=== PATIENT | female | born 2000 | race Caucasian/White ===

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

== ENCOUNTER 2018-08-30 00:57 | Inpatient (IN) ==
--- NOTE | 2018-08-30 02:04 | ED ---
History of Present Illness Primary Care Physician: UNKNOWN Chief Complaint: Contractions History of Present Illness: 17 year-old , IUP at 41.0 care complicated by ADHD, bipolar disorder, asthma, chronic hypertension The patient presents complaining of the onset of painful contractions that started yesterday at 1 pm. She reports they have increased in intensity and frequency since that time and she is now feeling them about every 10 to 15 minutes. She thought she may be having some leaking but denies any large gush of fluid. She denies any vaginal bleeding. She reports normal movement. She has no other obstetrical concerns tonight. reading assistant: , SAB x1, Denies abnormal PAPs or STDs PMH: ADHD, bipolar disorder, asthma, chronic hypertension FH: CAD, CO, CVA, DM PSH: L foot/toe surgery SH: denies Meds/Allergies: denies - Inpatient Certification I certify that the inpatient services were ordered in accordance with Medicare regulations governing the order. This includes certification that hospital inpatient services are reasonable and necessary and in the case of services not specified as inpatient-only under 42 CFR 419.22(n), that they are appropriately provided as inpatient services in accordance to with the 2-midnight benchmark under 43 CFR 412.3(e) Review of Systems All other systems reviewed negative except as stated in HPI [facility] - History History Provided By: Patient - Medical History Medical History: Medical History (Last Reviewed 05/22/18 @ 00:32 by Svetlana Villavicencio) History of ADHD - Surgical History Surgical History: Surgical History (Last Updated 05/21/18 @ 23:45 by Antonia Matamoros RN) No history of previous surgery - Tobacco History Smoking Status: Former smoker Tobacco Type: Cigarettes - Alcohol History How Often Do You Have a Drink Containing Alcohol: Never - Substance Use History Substance History: No History of Abuse - Travel History Recent Travel in the [place] Within the Last 8 Weeks: No Recent Travel Out of the Country Within the Last 8 Weeks: No Medications and Allergies Allergies Allergy/AdvReac Type Severity Reaction Status Date / Time tide Allergy Severe Hives Uncoded 08/07/18 10:58 Home Medications Medication Instructions Recorded Confirmed Type No Known Home Medications 08/07/18 08/07/18 History Exam Vital signs: Vital Signs 08/30/18 01:24 Pulse Rate 77 Respiratory Rate 18 Blood Pressure 134/85 Narrative: GENERAL: Well-nourished, well-developed patient. SKIN: Warm and dry. No rashes, lesions, masses. HEAD: Normocephalic and atraumatic. EYES: No scleral icterus. No injection or drainage. ENT: No nasal drainage noted. Mucous membranes pink. Airway patent. NECK: Supple, trachea midline. No JVD. CARDIOVASCULAR: Regular rate and rhythm without murmurs, gallops, or rubs. RESPIRATORY: Breath sounds equal bilaterally. No accessory muscle use. BREASTS: Deferred ABDOMEN/GI: Abdomen soft, non-tender, bowel sounds present, no rebound, no guarding Gravid GENITOURINARY: Normal EGBUS, no cervical or vaginal masses noted, physiologic discharge, Amnisure negative, grossly normal rugae, SVE 4/80/-2, cephalic FHT's: heart tones are in the 130s with moderate middle or intermediate school principal variability, good accels, and no decels noted. This is a category 1 heart rate tracing and a reactive NST. EXTREMITIES: No cyanosis or edema. BACK: Nontender without obvious deformity. No CVA tenderness. NEUROLOGICAL: Awake and alert x3. Grossly normal memory/affect. Cranial nerves II through XII grossly intact. Grossly normal range of motion. Motor and sensory grossly within normal limits. Five out of 5 muscle strength in all muscle groups. Normal speech. Assessment and Plan - Plan Assessment/Plan: 1. IUP at 41.0 2. Early active vs late latent labor: patient has made cervical change of 1 cm since yesterday and reports contractions. Will admit and augment if indicated. Discussed briefly risks of , risks/indications of delivery. All of the patient's questions were answered. 3. GBS negative 4. wellbeing: reassuring testing with reactive NST and category 1 heart rate tracing, continue monitoring 5. Chronic hypertension: BP stable today 6. ADHD 7. Bipolar disorder 8. Asthma Discharge Plan - Discharge Disposition Patient Disposition: 30 Still Patient - Discharge Condition Condition: Good - Physicians Team ED Provider: Cristina Ronquillo Primary Care Provider: UNKNOWN,
[2018-08-30] MEDS ORDERED: Oxytocin 30 Units/500ml Premix 30 UNITS/500 ML BAG IV.SIG ONE (02:16)
[2018-08-30] MEDS ORDERED: fentaNYL Citrate Inj 100 MCG/2 ML Ampul IV.PUSH PRN ×2 (02:16)
[2018-08-30] MEDS ORDERED: Sodium Chlor 0.9% Inj 500 ML IV.SIG PRN (02:16)
[2018-08-30] MEDS ORDERED: Naloxone Inj 0.4 MG/ML Vial IV.PUSH PRN ×2 (02:16→19:56)
[2018-08-30] MEDS ORDERED: Sod Chloride 0.9% Inj 1,000 ML IV.CONT PRN (02:16)
[2018-08-30] MEDS ORDERED: Oxytocin 30 Units/500ml Premix 30 UNITS/500 ML BAG IV.SIG PRN ×2 (02:17→10:18)
[2018-08-30] MEDS ORDERED: Citric Acid/Sodium Citrate Liq 30 ML UDC PO SCH (02:30)
[2018-08-30 02:45] LABS: Baso % (Auto) 0.1 % (0.0-2.0); Eos # (Auto) 0.1 th/mm3 (0.0-0.4); Eos % (Auto) 0.7 % (0.0-4.0); Hematocrit 38.8 % (35.0-46.0); Hemoglobin 12.9 gm/dL (11.6-15.3); Lymph # (Auto) 1.5 th/mm3 (1.0-4.8); Lymph % (Auto) 7.8 % (9.0-44.0); Mean Corpuscular HGB Conc 33.2 % (32.0-36.0); Mean Corpuscular Hemoglobin 28.3 pg (27.0-34.0); Mean Corpuscular Volume 85.1 fL (80.0-100.0); Mean Platelet Volume 9.9 fL (7.0-11.0); Mono # (Auto) 1.4 th/mm3 (0.0-0.9); Mono % (Auto) 7.7 % (0.0-8.0); Neut # (Auto) 15.6 th/mm3 (1.8-7.7); Neut % (Auto) 83.7 % (16.0-70.0); Platelet Count 165 th/mm3 (150-450); Red Blood Count 4.55 mil/mm3 (4.00-5.30); Red Cell Distribution Width 14.6 % (11.6-17.2); White Blood Count 18.7 th/mm3 (4.0-11.0)
[2018-08-30 02:52] LABS: Bilirubin,Urine Negative (Negative); Clarity,Urine Clear (Clear); Color,Urine Yellow (Yellw/Straw); Glucose,Urine (UA) Negative (Negative); Leukocyte Esterase,Urine Negative (Negative); Mucus,Urine Few /lpf (Occasional); Nitrite,Urine Negative (Negative); Squamous Epithelial Cell,Urine 1 /hpf (0-5)
[2018-08-30 02:55] LABS: Amphetamine Urine With Conf Neg (Neg); Benzodiazepine Urine With Conf Neg (Neg)
[2018-08-30] MEDS ORDERED: fentaNYL 2MCG-Bupiv 0.125% Epi 150 ML EPIDURAL ONE (06:35)
[2018-08-30] MEDS ORDERED: fentaNYL 2MCG-Bupiv 0.125% Epi 150 ML EPIDURAL PRN (07:30)
[2018-08-30] MEDS ORDERED: fentaNYL Citrate Inj 100 MCG/2 ML Ampul EPIDURAL ONE (07:30)
[2018-08-30] MEDS ORDERED: Acetaminophen 325 MG Tablet PO PRN ×2 (11:47→19:56)
[2018-08-30] MEDS ORDERED: Sodium Chloride 0.9% 2 ML Flush PRN IV.FLUSH (12:19)
[2018-08-30] MEDS: Gentamicin/NS 80 mg Premix 100 ML IV.SIG SCH ×2 (12:45→18:24)
[2018-08-30] MEDS ORDERED: Diphtheria/Tetanus/Pertussis Vaccine Inj 0.5 ML Syringe IM ONE (16:00)
[2018-08-30] MEDS ORDERED: Measles/Mumps/Rubella Vaccine Inj 0.5 ML Vial SQ ONE (16:00)
[2018-08-30] MEDS ORDERED: Lidocaine 1% Inj 50 ML Vial ONE ×2 (19:13→19:17)
[2018-08-30] MEDS ORDERED: Witch Hazel 50%/Glyderin 12.5% 40 Pad Jar RECTAL PRN (19:56)
[2018-08-30] MEDS ORDERED: Oxytocin 30 Units/500ml Premix 30 UNITS/500 ML BAG IV.CONT PRN (19:56)
[2018-08-30] MEDS ORDERED: Benzocaine 20% Top Spray 60 ML Can TOPICAL PRN (19:56)
[2018-08-30] MEDS ORDERED: Bisacodyl 10 MG Supp RECTAL PRN (19:56)
--- NOTE | 2018-08-30 20:00 | P.OBDELI ---
Anesthesia: Epidural, Lidocaine local to perineum Episiotomy: midline Vaginal Delivery: Normal Presentation: Occiput anterior Nuchal Cord: x1 Delayed Cord Clamping (45 sec): Yes Placenta: Spontaneous delivery, Intact Laceration: Episiotomy, 2 deg Repair: Chromic running Infant Male A Delivery Date: 08/30/18 Infant Delivery Time: 19:22 Weight: 3.9 kg score (1 min): 8 score (5 min): 8
[2018-08-30] MEDS ORDERED: Zolpidem Tartrate 5 MG Tablet PO PRN (21:00)
[2018-08-30] MEDS: Senna/Docusate Sodium 8.6/50 MG Tablet PO SCH (22:28)
[2018-08-31] MEDS: Sodium Chloride 0.9% 2 ML Flush BID IV.FLUSH SCH ×2 (00:08→23:16)
[2018-08-31] MEDS: Gentamicin/NS 80 mg Premix 100 ML IV.SIG SCH (05:54)
--- NOTE | 2018-08-31 07:14 | P.PNOB ---
Subjective Post day: 1 Interval history: day # 1 AFVSS overnight. Decreased lochia. Denies dysuria. No breast pain. Appetite good. No nausea or vomiting. Ambulating well. Denies calf pain or shortness of breath. Otherwise, she is doing well this morning and has no other complaints. Objective Vital Signs/I&O: Vital Signs 08/30/18 07:27 08/30/18 07:30 08/30/18 07:38 Temperature Pulse Rate 102 H 68 99 H Respiratory Rate 18 18 Blood Pressure 134/77 125/58 L 123/77 08/30/18 07:40 08/30/18 08:00 08/30/18 08:24 Temperature 98.0 F Pulse Rate 73 73 Respiratory Rate 18 18 Blood Pressure 119/68 115/67 08/30/18 08:40 08/30/18 08:55 08/30/18 08:58 Temperature Pulse Rate 94 H 95 H Respiratory Rate 18 Blood Pressure 103/66 99/48 L 08/30/18 09:00 08/30/18 09:25 08/30/18 09:57 Temperature Pulse Rate 85 79 76 Respiratory Rate 18 Blood Pressure 111/66 122/71 115/57 L 08/30/18 10:00 08/30/18 10:15 08/30/18 10:28 Temperature Pulse Rate 115 H Respiratory Rate 18 18 Blood Pressure 102/57 L 08/30/18 10:45 08/30/18 11:00 08/30/18 11:30 Temperature 100.2 F H Pulse Rate 102 H 116 H 94 H Respiratory Rate 18 18 18 Blood Pressure 105/58 L 112/48 L 118/65 08/30/18 12:00 08/30/18 12:30 08/30/18 12:54 Temperature Pulse Rate 90 112 H 95 H Respiratory Rate 18 18 18 Blood Pressure 118/63 117/50 L 128/64 08/30/18 12:55 08/30/18 13:15 08/30/18 13:27 Temperature 99.9 F H Pulse Rate 94 H Respiratory Rate 18 Blood Pressure 154/79 H 08/30/18 13:46 08/30/18 13:58 08/30/18 14:25 Temperature Pulse Rate 115 H 102 H Respiratory Rate 18 18 Blood Pressure 142/61 H 85/40 L 08/30/18 14:30 08/30/18 15:00 08/30/18 15:22 Temperature 99.9 F H Pulse Rate 93 H 94 H Respiratory Rate 18 18 Blood Pressure 116/56 L 137/67 08/30/18 15:56 08/30/18 16:00 08/30/18 16:14 Temperature Pulse Rate 87 94 H Respiratory Rate 18 18 Blood Pressure 120/99 H 155/102 H 08/30/18 16:30 08/30/18 16:42 08/30/18 16:45 Temperature 99.7 F H Pulse Rate 103 H 143 H Respiratory Rate 18 18 Blood Pressure 145/107 H 145/116 H 08/30/18 16:46 08/30/18 17:15 08/30/18 17:16 Temperature Pulse Rate 95 H 94 H 84 Respiratory Rate 18 Blood Pressure 160/87 H 162/87 H 156/117 H 08/30/18 17:44 08/30/18 18:15 08/30/18 18:43 Temperature Pulse Rate 94 H 94 H 98 H Respiratory Rate 20 20 20 Blood Pressure 146/71 H 146/84 H 152/93 H 08/30/18 19:34 08/30/18 19:38 08/30/18 19:45 Temperature Pulse Rate 104 H 96 H Respiratory Rate 20 Blood Pressure 139/88 138/86 08/30/18 20:00 08/30/18 20:04 08/30/18 20:30 Temperature 100.3 F H Pulse Rate 94 H 82 Respiratory Rate 18 Blood Pressure 143/98 H 125/94 H 08/30/18 20:31 08/30/18 20:50 08/30/18 21:05 Temperature Pulse Rate 93 H 93 H Respiratory Rate 20 20 20 Blood Pressure 136/64 121/92 H 08/30/18 21:20 08/30/18 21:35 08/30/18 21:50 Temperature 100.6 F H 99.8 F H Pulse Rate 112 H 121 H Respiratory Rate 20 20 18 Blood Pressure 120/81 123/85 08/30/18 23:05 08/31/18 01:00 Temperature 100.5 F H 98.9 F Pulse Rate Respiratory Rate Blood Pressure Intake & Output 08/30/18 08/31/18 08/31/18 18:59 06:59 18:59 Intake Total 3300 / 3300 Balance 3300 / 3300 Intake: IV 3300 / 3300 LR 1000 mL Inj 1,000 ML @ 125 2000 / 2000 mls/hr IV.CONT .Q8H [facility] Rx#: [id number] Ampicillin Inj 2,000 MG In NS 200 / 200 Inj 100 ML @ 400 mls/hr IV.SIG Q6H [facility] Rx#:[id number] Gentamicin/NS 80 mg Premix 100 100 / 100 ML @ 200 mls/hr IV.SIG Q6H [facility] Rx#:[id number] LR 1000 mL Inj 1,000 ML @ 3000 1000 / 1000 mls/hr IV.SIG UNSCH PRN Rx#: [id number] Result Diagrams: 08/30/18 02:33 Objective Remarks: GENERAL: Well-nourished, well-developed patient. CARDIOVASCULAR: Regular rate and rhythm without murmurs, gallops, or rubs. RESPIRATORY: Breath sounds equal bilaterally. No accessory muscle use. ABDOMEN/GI: Abdomen soft, non-tender. Fundus: Firm, non-tender at umbilicus. GENITOURINARY: Light to moderate bleeding. EXTREMITIES: No cyanosis or edema, non-tender, without signs of DVT. Medications and IVs: Active Medications Acetaminophen (Tylenol) 325 mg PO Q4H PRN PRN Reason: FEVER Last Admin: 08/30/18 12:19 Dose: 325 mg Acetaminophen (Tylenol) 650 mg PO Q4H PRN PRN Reason: PAIN SCALE 1 TO 2 Al Hydroxide/Mg Hydroxide (Milk Of Magnesia Liq) 30 ml PO Q12H PRN PRN Reason: Mild Constipation Benzocaine (Americaine 20% Top [place]) 1 spray TOPICAL Q4H PRN PRN Reason: For Perineum Discomfort Last Admin: 08/30/18 22:47 Dose: 1 spray Bisacodyl (Dulcolax Supp) 10 mg RECTAL DAILY PRN PRN Reason: SEVERE CONSITIPATION Citric Acid/Sodium Citrate (Sodium Citrate/Citric Acid Liq) 30 ml PO BRIQUETTE MAKER [facility] Stop: 09/03/18 02:29 Ephedrine Sulfate (Ephedrine/Ns Syringe) 10 mg IV.PUSH UNSCH PRN PRN Reason: SEE LABEL COMMENTS Stop: 08/31/18 07:24 Last Admin: 08/30/18 10:03 Dose: 10 mg Hydroxyzine Pamoate (Vistaril) 50 mg PO Q6H PRN PRN Reason: ANXIETY AND/OR INSOMNIA Last Admin: 08/30/18 03:03 Dose: 50 mg Lactated Ringer's (Lr 1000 Ml Inj) 1,000 mls @ 3,000 mls/hr IV.SIG UNSCH PRN PRN Reason: compromise or epidural Last Admin: 08/30/18 15:10 Dose: 3,000 mls/hr Sodium Chloride (Ns Inj) 500 mls @ 1,000 mls/hr IV.SIG UNSCH PRN PRN Reason: SEE LABEL COMMENTS Sodium Chloride (Ns Inj) 1,000 mls @ 100 mls/hr IV.CONT .Q10H PRN PRN Reason: SEE LABEL COMMENTS Lactated Ringer's (Lr 1000 Ml Inj) 1,000 mls @ 125 mls/hr IV.CONT .Q8H SUSANNA Last Admin: 08/31/18 05:52 Dose: Not Given Fentanyl/Bupivacaine/Sodium Chlor (Fentanyl 2 Mcg-Bupiv 0.125% Epi) 150 mls @ 12 mls/hr EPIDURAL PRN PRN PRN Reason: for Labor Pain Last Admin: 08/30/18 06:35 Dose: 12 mls/hr Oxytocin (Pitocin 30 Units/Ns 500 Ml Premix) 30 units in 500 mls @ 100 mls/hr IV.CONT UNSCH PRN PRN Reason: Heavy bleeding Ibuprofen (Motrin) 800 mg PO Q8H PRN PRN Reason: For Cramping Last Admin: 08/30/18 22:28 Dose: 800 mg Lactulose (Lactulose Liq) 30 ml PO DAILY PRN PRN Reason: SEVERE CONSITIPATION Lidocaine HCl (Xylocaine 1% Inj) 0.1 ml I-DERMAL PRN PRN PRN Reason: For IV start Stop: 09/02/18 02:15 Last Admin: 08/30/18 03:01 Dose: 0.1 ml Lidocaine HCl (Xylocaine 1% Inj) 10 ml INFILTRATN PRN PRN PRN Reason: For episiotomy repair Stop: 09/01/18 02:15 Mineral Oil (Muri-Lube Oil) 10 ml TOPICAL PRN PRN PRN Reason: PRN perineal massage Last Admin: 08/30/18 17:51 Dose: 10 ml Miscellaneous Information (Misc Information) 1 each OTHER UNSCH PRN PRN Reason: SEE LABEL COMMENTS Stop: 08/31/18 07:24 Miscellaneous Information (Misc Information) 1 each OTHER UNSCH PRN PRN Reason: SEE LABEL COMMENTS Stop: 08/31/18 07:24 Naloxone HCl (Narcan Inj) 0.1 mg IV.PUSH Q2M PRN PRN Reason: for opiate reversal Ondansetron HCl (Zofran Odt) 4 mg PO Q6H PRN PRN Reason: NAUSEA OR VOMITING Oxycodone/Acetaminophen (Percocet 5/325 Mg) 1 tab PO Q4H PRN PRN Reason: PAIN SCALE 3 TO 5 Oxycodone/Acetaminophen (Percocet 5/325 Mg) 2 tab PO Q4H PRN PRN Reason: PAIN SCALE 6 TO 10 Senna/Docusate Sodium (Shira-Colace) 1 tab PO BID [facility] Last Admin: 08/30/18 22:28 Dose: 1 tab Sennosides (Senokot) 17.2 mg PO Q12H PRN PRN Reason: Moderate Constipation Sodium Chloride (Ns Flush) 2 ml IV.FLUSH BID [facility] Last Admin: 08/31/18 00:08 Dose: Not Given Sodium Chloride (Ns Flush) 2 ml IV.FLUSH PRN PRN PRN Reason: FLUSH AFTER USING IV ACCESS Witch Rosanna/Glycerin (Tucks Pads) 1 applicatio RECTAL QID PRN PRN Reason: HEMORRHOIDS Last Admin: 08/30/18 22:47 Dose: 1 applicatio Zolpidem Tartrate (Ambien) 5 mg PO HS PRN PRN Reason: SLEEP Assessment and Plan - Plan 17 y/o female who is PPD# 1 s/p vaginal delivery. -Continue routine care. -Motrin PRN pain. -Encouraged OOB. Advised pelvic rest for 6 wks. -Re: ctrl, she would like to follow up with outpatient OB for a Nexplanon. -D/c likely tomorrow. tiarraw Dr. Mcdonough
[2018-08-31] MEDS: Senna/Docusate Sodium 8.6/50 MG Tablet PO SCH ×2 (09:23→23:14)
--- NOTE | 2018-09-01 08:38 | P.PNOB ---
Subjective Post day: 2 Interval history: Patient's pain is well-controlled. Patient reports eating and drinking without any nausea or vomiting. Patient reports minimal bleeding. Patient has passed gas but no bowel movements. Patient is walking without lower extremity pain or shortness of breath. Objective Vital Signs/I&O: Vital Signs 08/31/18 20:00 Temperature 97.5 F L Pulse Rate 79 Respiratory Rate 18 Blood Pressure 129/82 Result Diagrams: 08/30/18 02:33 Objective Remarks: GENERAL: Well-nourished, well-developed patient. CARDIOVASCULAR: Regular rate and rhythm without murmurs, gallops, or rubs. RESPIRATORY: Breath sounds equal bilaterally. No accessory muscle use. ABDOMEN/GI: Abdomen soft, non-tender. Fundus: Firm, non-tender at umbilicus. GENITOURINARY: Light to moderate bleeding. EXTREMITIES: No cyanosis or edema, non-tender, without signs of DVT. Medications and IVs: Active Medications Acetaminophen (Tylenol) 325 mg PO Q4H PRN PRN Reason: FEVER Last Admin: 08/30/18 12:19 Dose: 325 mg Acetaminophen (Tylenol) 650 mg PO Q4H PRN PRN Reason: PAIN SCALE 1 TO 2 Al Hydroxide/Mg Hydroxide (Milk Of Magnesia Liq) 30 ml PO Q12H PRN PRN Reason: Mild Constipation Benzocaine (Americaine 20% Top Gordon) 1 spray TOPICAL Q4H PRN PRN Reason: For Perineum Discomfort Last Admin: 08/30/18 22:47 Dose: 1 spray Bisacodyl (Dulcolax Supp) 10 mg RECTAL DAILY PRN PRN Reason: SEVERE CONSITIPATION Citric Acid/Sodium Citrate (Sodium Citrate/Citric Acid Liq) 30 ml PO [employer] SUSANNA Stop: 09/03/18 02:29 Hydroxyzine Pamoate (Vistaril) 50 mg PO Q6H PRN PRN Reason: ANXIETY AND/OR INSOMNIA Last Admin: 08/30/18 03:03 Dose: 50 mg Lactated Ringer's (Lr 1000 Ml Inj) 1,000 mls @ 3,000 mls/hr IV.SIG UNSCH PRN PRN Reason: compromise or epidural Last Admin: 08/30/18 15:10 Dose: 3,000 mls/hr Sodium Chloride (Ns Inj) 500 mls @ 1,000 mls/hr IV.SIG UNSCH PRN PRN Reason: SEE LABEL COMMENTS Sodium Chloride (Ns Inj) 1,000 mls @ 100 mls/hr IV.CONT .Q10H PRN PRN Reason: SEE LABEL COMMENTS Lactated Ringer's (Lr 1000 Ml Inj) 1,000 mls @ 125 mls/hr IV.CONT .Q8H [facility] Last Admin: 08/31/18 05:52 Dose: Not Given Fentanyl/Bupivacaine/Sodium Chlor (Fentanyl 2 Mcg-Bupiv 0.125% Epi) 150 mls @ 12 mls/hr EPIDURAL PRN PRN PRN Reason: for Labor Pain Last Admin: 08/30/18 06:35 Dose: 12 mls/hr Oxytocin (Pitocin 30 Units/Ns 500 Ml Premix) 30 units in 500 mls @ 100 mls/hr IV.CONT UNSCH PRN PRN Reason: Heavy bleeding Ibuprofen (Motrin) 800 mg PO Q8H PRN PRN Reason: For Cramping Last Admin: 08/31/18 23:13 Dose: 800 mg Lactulose (Lactulose Liq) 30 ml PO DAILY PRN PRN Reason: SEVERE CONSITIPATION Lidocaine HCl (Xylocaine 1% Inj) 0.1 ml I-DERMAL PRN PRN PRN Reason: For IV start Stop: 09/02/18 02:15 Last Admin: 08/30/18 03:01 Dose: 0.1 ml Mineral Oil (Muri-Lube Oil) 10 ml TOPICAL PRN PRN PRN Reason: PRN perineal massage Last Admin: 08/30/18 17:51 Dose: 10 ml Naloxone HCl (Narcan Inj) 0.1 mg IV.PUSH Q2M PRN PRN Reason: for opiate reversal Ondansetron HCl (Zofran Odt) 4 mg PO Q6H PRN PRN Reason: NAUSEA OR VOMITING Oxycodone/Acetaminophen (Percocet 5/325 Mg) 1 tab PO Q4H PRN PRN Reason: PAIN SCALE 3 TO 5 Oxycodone/Acetaminophen (Percocet 5/325 Mg) 2 tab PO Q4H PRN PRN Reason: PAIN SCALE 6 TO 10 Senna/Docusate Sodium (Shira-Colace) 1 tab PO BID [facility] Last Admin: 08/31/18 23:14 Dose: 1 tab Sennosides (Senokot) 17.2 mg PO Q12H PRN PRN Reason: Moderate Constipation Sodium Chloride (Ns Flush) 2 ml IV.FLUSH BID SUSANNA Last Admin: 08/31/18 23:16 Dose: Not Given Sodium Chloride (Ns Flush) 2 ml IV.FLUSH PRN PRN PRN Reason: FLUSH AFTER USING IV ACCESS Witch Rosanna/Glycerin (Tucks Pads) 1 applicatio RECTAL QID PRN PRN Reason: HEMORRHOIDS Last Admin: 08/30/18 22:47 Dose: 1 applicatio Zolpidem Tartrate (Ambien) 5 mg PO HS PRN PRN Reason: SLEEP Assessment and Plan - Diagnosis (1) (normal spontaneous vaginal delivery) Code(s): O80 - Encounter for full-term uncomplicated delivery Status: Acute - Plan 17 y/o female who is PPD# 2 s/p vaginal delivery. -Continue routine care. -Motrin PRN pain. -Encouraged OOB. Advised pelvic rest for 6 wks. -Re: ctrl, she would like to follow up with outpatient OB for a Nexplanon. -D/c likely today
[2018-09-01] MEDS: Sodium Chloride 0.9% 2 ML Flush BID IV.FLUSH SCH (11:15)
[2018-09-01] MEDS: Senna/Docusate Sodium 8.6/50 MG Tablet PO SCH (11:16)
== END 2018-09-01 14:14 | disposition home or self-care (01) ==
LOC: HOBED 00:57 → H2E 01:50 → H1EA 22:01
PROVIDERS: ADMIT Obstetrics & Gynecology; ATTEND Obstetrics & Gynecology